=== PATIENT | male | born 1990 | race Hispanic/Latino ===

== ENCOUNTER 2018-05-22 22:56 | Emergency (ER) | payer OTHER, SELFPAY ==
[2018-05-22 23:10] VITALS: BP 131/96; PULSE 80; RESP 16; TEMP 37.1; O2SAT 100; BMI 31.3
--- NOTE | 2018-05-22 23:26 | ED_ITS ---
HPI - Ear Problem General Chief complaint: Ear Stated complaint: possible damaged eardrums...both ears Time Seen by Provider: 05/22/18 23:10 Source: patient Mode of arrival: ambulatory Limitations: no limitations History of Present Illness HPI Narrative: Patient is a 28-year-old male who presents with bilateral hearing loss. He says he tried getting wax out of his ears using a Q-tip he was unable to do so in a he really can't hear. He has bilateral ear pain more on the left than the right. No sore throat no cough no fever no other symptoms. MD Complaint: ear pain Location: bilateral Related Data Home Medications Medication Instructions Recorded Confirmed No Known Home Medications 05/22/18 05/22/18 Allergies Allergy/AdvReac Type Severity Reaction Status Date / Time acetaminophen [ACETAMINOPHEN] Allergy Intermediate Unverified 05/22/18 23:13 Review of Systems Review of Systems GENERAL: Denies chills,fever HEENT the HPI RESPIRATORY: Denies dyspnea, cough, wheezing CARDIOVASCULAR: Denies chest pain, palpitations GASTROINTESTINAL: Denies nausea, vomiting MUSCULOSKELETAL: Denies extremity pain, injury SKIN: No rash, no laceration, no pruritus NEUROLOGIC: Denies weakness, dizziness, headache, numbness 8 point review of systems is negative except for those stated above and HPI PFSH Surgical History History of third molar tooth extraction Family History Grandfather Age: 74 Depression Social History Smoking Status: Never smoker Exam Initial Vital Signs Initial Vital Signs: Vital Signs Temperature 98.8 F 05/22/18 23:10 Pulse Rate 80 05/22/18 23:10 Respiratory Rate 16 05/22/18 23:10 Blood Pressure 131/96 H 05/22/18 23:10 Pulse Oximetry 100 05/22/18 23:10 Const General: cooperative and well developed Nutritional Appearance: well nourished Orientation: alert, awake, oriented x3 and not confused [facility] Ears: unable to visualize TM bilaterally (Bilateral cerumen impaction) Nose: external nose normal Mouth: oral mucosae normal Chest Chest: normal inspection of the chest Resp Auscultation: clear to auscultation bilaterally, no rales, no rhonchi and no wheezes Cardio Rate: regular rate Rhythm: regular rhythm Heart Sounds: S1 normal and S2 normal Skin General: no rashes or lesions noted, No jaundice and No petechiae Neuro General: alert, oriented x3, gait normal and no focal motor deficits Speech: speech normal Procedures Ear Wax Removal Both Ears: Cerumenolytic Used: other (IV Fluid) Results: Re-examined: cerumen removed completely TM Examination: TM(s) intact, normal appearance Ear Canal Exam: atraumatic and other (Slightly irritated) Patient Tolerated Procedure: Well Complications: no problems Technique: ear canal irrigated and ear canal curetted Additional Comments: Nursing flushed out ears. Course Vital Signs - 8 hr 05/22/18 23:10 Temperature 98.8 F Pulse Rate 80 Respiratory Rate 16 Blood Pressure 131/96 H Pulse Oximetry 100 Discharge Plan Departure Patient Disposition: Home Clinical Impression: Bilateral impacted cerumen Discharge Date/Time: 05/22/18 23:55 Interventions: ED Discharge Assessment Last Done: 05/22/18 23:55 Instructions: Cerumen Impaction Activity Restrictions/Additional Instructions: *You have been diagnosed with bilateral cerumen impaction *What to do: *Continue to take medications as directed *Follow up with your primary care provider in 2-3 days *Return to ER if you should have [such as] [or] any new, worsening or concerning symptoms Prescriptions: No Action No Known Home Medications RF: 0 Referrals: Batool Payne DO [Primary Care Provider] -
--- NOTE | 2018-05-22 23:55 | PC.NURSE ---
Irrigated both ears with one liter of warmed saline each using a flush with IV cannula attached to get into ear and soften/flush out ear wax. Some wax required an ear curette to get out of the ear once it was dislodged. Pt hearing tested with a tuning fork and he reports hearing is equal bilaterally after ear wax removal. Provider notified and discharged pt.
== END 2018-05-22 23:55 | disposition home or self-care (01) ==
PROVIDERS: Emergency Provider Emergency Medicine; PCP Family Medicine
DX: H61.23 Impacted cerumen, bilateral (principal)
CPT/HCPCS: 99282

== ENCOUNTER 2019-03-29 02:09 | Emergency (ER) | payer OTHER, SELFPAY ==
[2019-03-29 02:17] VITALS: PULSE 125; RESP 22; TEMP 36.1; O2SAT 100
--- NOTE | 2019-03-29 02:19 | ED.ARRPALP ---
HPI - Arrhythmia/Palpitations General Chief Complaint: Arrhythmia/Palpitations Stated Complaint: heart started racing fingers went numb Time Seen by Provider: 03/29/19 02:19 Source: patient Mode of arrival: Ambulatory Limitations: no limitations History of Present Illness HPI narrative: 29-year-old otherwise healthy male here for evaluation of palpitations and paresthesias in his hands. He states the symptoms occurred prior to arrival he was at work. Denies any chest pain or shortness of breath. Has never had anything like this in the past. Has not tried anything for symptoms prior to arrival. Related Data Home Medications Medication Instructions Recorded Confirmed No Known Home Medications 05/22/18 05/22/18 Allergies Allergy/AdvReac Type Severity Reaction Status Date / Time acetaminophen [ACETAMINOPHEN] Allergy Intermediate Unverified 05/22/18 23:13 Review of Systems Constitutional Constitutional: Denies fatigue, Denies fever(s) and Denies headache(s) Eyes Eyes: Denies blurry vision and Denies change in vision ENT Ears, Nose, Mouth, and Throat: Denies headache(s) Cardiovascular Cardiovascular: Denies chest pain, Denies edema, Reports palpitations, Denies dyspnea and Denies dyspnea on exertion Respiratory Respiratory: Denies dyspnea and Denies dyspnea on exertion Gastrointestinal Gastrointestinal: Denies abdominal pain, Denies nausea and Denies vomiting Genitourinary Genitourinary: Denies dysuria Musculoskeletal Musculoskeletal: Denies myalgias, Denies arthralgias and Reports tingling Integumentary/Breasts Skin/Breast: Denies lesions and Denies rash Neurologic Neurologic: Denies behavioral changes, Denies headache(s), Reports tingling and Reports paresthesias Psychiatric Psychiatric: Denies behavioral changes Endocrine Endocrine: Denies fatigue and Reports palpitations Hematologic/Lymphatic Hematologic/Lymphatic: Denies easy bleeding and Denies easy bruising Patient History Medical History Conjunctivitis (Inactive) GI bleed due to NSAIDs (Inactive) Surgical History History of third molar tooth extraction Family History (Updated 05/07/16 @ 00:00 by Conversion Provider) Grandfather Age: 74 Depression Social History Smoking Status: Never smoker alcohol intake frequency: 0-2 drinks per day Substance Use Type: marijuana and other Exam Initial Vital Signs Initial Vital Signs: Vital Signs Temperature 96.9 F L 03/29/19 02:17 Pulse Rate 125 H 03/29/19 02:17 Respiratory Rate 22 03/29/19 02:17 Pulse Oximetry 100 03/29/19 02:17 Const General: cooperative, comfortable and well developed Orientation: alert, awake and oriented x3 HENMT Head: normal to inspection and normocephalic Resp Effort & Inspection: normal respiratory effort Auscultation: clear to auscultation bilaterally Cardio Rate: tachycardic Rhythm: regular rhythm Pulses: radial pulses present GI Inspection: non-distended Palpation: soft Skin Lesions: no lesions Rashes: no rashes Neuro General: alert, awake and oriented x3 Cognition: normal cognition Speech: speech normal Extrem General: normal to inspection and capillary refill normal Psych Appearance: grossly normal and well kempt Course Orders Ordered: ED Orders 03/29/19 02:20 EKG-12 Lead Stat 03/29/19 02:25 Basic Metabolic Panel Stat Complete Blood Count AUTO DIFF Stat D Dimer Stat Partial Thromboplastin Time Stat Prothrombin Time INR Stat Discontinued Medications Sodium Chloride (Normal Saline 0.9%) 1,000 mls @ 1,000 mls/hr IV BOLUS ONE Stop: 03/29/19 03:18 Last Admin: 03/29/19 03:00 Dose: 1,000 mls/hr Documented by: OC Lorazepam (Ativan) 0.5 mg IV NOW ONE Stop: 03/29/19 02:29 Last Admin: 03/29/19 03:00 Dose: 0.5 mg Documented by: OC Potassium Chloride (Potassium Chloride) 40 meq PO NOW ONE Stop: 03/29/19 03:05 Last Admin: 03/29/19 03:08 Dose: 40 meq Documented by: OC Vital Signs Vital signs: Vital Signs - 8 hr 03/29/19 02:17 03/29/19 02:53 03/29/19 03:31 Temperature 96.9 F L Pulse Rate 125 H 85 82 Respiratory Rate 22 18 16 Blood Pressure [Left Arm] 140/77 136/80 Pulse Oximetry 100 99 99 MDM - Arrhythmia/Palpitations Lab Data Attestation: I reviewed the patient's lab results. Result diagrams: 03/29/19 02:25 03/29/19 02:25 Labs: Lab Results 03/29/19 03/29/19 03/29/19 Range/Units 02:25 02:25 02:25 WBC 9.6 (4.5-11.0) X10^3/uL RBC 5.41 (4.5-5.9) X10^6/uL Hgb 15.7 (13.5-17.5) g/dL Hct 46.1 (41-53) % MCV 85.1 (80-100) fL MCH 29.0 (26-34) PG MCHC 34.1 (30-36) % RDW 13.2 (11.6-14.8) % Plt Count 299 (150-400) X10^3/uL Neut % (Auto) 32.0 L (50-75) % Lymph % (Auto) 53.3 H (25-40) % [place] % (Auto) 10.0 (3-14) % Eos % (Auto) 4.1 H (2-4) % Baso % (Auto) 0.6 (0-2) % Neut # (Auto) 3100 (1578-1001) /uL Lymph # (Auto) 5100 H (0383-5339) /uL [place] # (Auto) 1000 H (0-900) /uL Eos # (Auto) 400 (0-450) /uL Baso # (Auto) 100 (0-100) /uL PT 11.9 (10.1-12.7) SECONDS INR 1.0 (0.9-1.3) APTT 32 (26.4-36.2) SECONDS D-Dimer (<230) ng/mL Sodium 141 (137-145) mmol/L Potassium 2.9 L (3.4-5.1) mmol/L Chloride 101 (98-107) mmol/L Carbon Dioxide 25 (22-32) mmol/L BUN 15 (9-20) mg/dL Creatinine 1.00 (0.66-1.25) mg/dL Estimated GFR > 60.0 (>60) mL/min BUN/Creatinine Ratio 15.0 (6-22) Glucose 111 H (70-100) mg/dL Calcium 9.4 (8.4-10.2) mg/dL 03/29/19 Range/Units 02:25 WBC (4.5-11.0) X10^3/uL RBC (4.5-5.9) X10^6/uL Hgb (13.5-17.5) g/dL Hct (41-53) % MCV (80-100) fL MCH (26-34) PG MCHC (30-36) % RDW (11.6-14.8) % Plt Count (150-400) X10^3/uL Neut % (Auto) (50-75) % Lymph % (Auto) (25-40) % [place] % (Auto) (3-14) % Eos % (Auto) (2-4) % Baso % (Auto) (0-2) % Neut # (Auto) (9319-4821) /uL Lymph # (Auto) (0733-1275) /uL [place] # (Auto) (0-900) /uL Eos # (Auto) (0-450) /uL Baso # (Auto) (0-100) /uL PT (10.1-12.7) SECONDS INR (0.9-1.3) APTT (26.4-36.2) SECONDS D-Dimer 232 H (<230) ng/mL Sodium (137-145) mmol/L Potassium (3.4-5.1) mmol/L Chloride (98-107) mmol/L Carbon Dioxide (22-32) mmol/L BUN (9-20) mg/dL Creatinine (0.66-1.25) mg/dL Estimated GFR (>60) mL/min BUN/Creatinine Ratio (6-22) Glucose (70-100) mg/dL Calcium (8.4-10.2) mg/dL ECG Data Attestation: I personally reviewed and interpreted this ECG as follows: Prior ECG tracings: not available for review Interpretation: Sinus tachycardia Ventricular rate of 1 0 we Normal axis Normal QRS Normal QTC No ST T wave changes MDM Narrative Medical decision making narrative: Patient was tachycardic upon arrival however this was a sinus tachycardia. No respiratory distress. Low suspicion for ACS. Low suspicion for PE. He was given Ativan which essentially resolved all of his symptoms. Patient states he did not feel particularly anxious about anything. He did take cranium earlier in the morning without was several hours ago. Did appear to be diaphoretic up on presentation however upon further questioning he stated that he did put some water on his face and in his here to try to get him to feel better while he was at work. Will hold on further workup for now. Informed patient he should contact his primary doctor for follow-up to discuss all Holter monitor. He was given return precautions. He expressed understanding and agreement with plan. Discharge Plan Departure Patient Disposition: Home Clinical Impression: Supraventricular tachycardia Instructions: Arrhythmias Activity Restrictions/Additional Instructions: Recommend that you contact your primary provider who in our system is Dr. Payne to discuss the indications for a Holter monitor. Return to the emergency department for any new or worsening symptoms Prescriptions: No Action No Known Home Medications RF: 0 Referrals: Batool Payne DO [Primary Care Provider] -
[2019-03-29 02:36] LABS: Add Manual Diff / Slide Review NO; Basophils Absolute Auto 100 /uL (0-100); Basophils Percent Auto 0.6 % (0-2); Eosinophils Absolute Auto 400 /uL (0-450); Eosinophils Percent Auto 4.1 % (2-4); Hematocrit 46.1 % (41-53); Hemoglobin 15.7 g/dL (13.5-17.5); Lymphocytes Absolute Auto 5100 /uL (1100-4500); Lymphocytes Percent Auto 53.3 % (25-40); Mean Corpuscular HGB Conc 34.1 % (30-36); Mean Corpuscular Volume 85.1 fL (80-100); Monocytes Absolute Auto 1000 /uL (0-900); Neutrophils Absolute Auto 3100 /uL (1500-7000); Platelet Count 299 X10^3/uL (150-400); Red Blood Cell Count 5.41 X10^6/uL (4.5-5.9); Red Cell Distribution Width 13.2 % (11.6-14.8); White Blood Cell Count 9.6 X10^3/uL (4.5-11.0)
[2019-03-29 02:43] LABS: Prothrombin Time 11.9 SECONDS (10.1-12.7)
[2019-03-29 02:45] LABS: Blood Urea Nitrogen 15 mg/dL (9-20); Calcium 9.4 mg/dL (8.4-10.2); Carbon Dioxide 25 mmol/L (22-32); Chloride 101 mmol/L (98-107); Estimated Glomerular Filt Rate > 60.0 mL/min (>60); Glucose 111 mg/dL (70-100); HEMOLYSIS < 15 (0-50); Potassium 2.9 mmol/L (3.4-5.1); Sodium 141 mmol/L (137-145)
[2019-03-29 02:46] LABS: PTT Partial Thromboplastin Tim 32 SECONDS (26.4-36.2)
[2019-03-29 02:53] VITALS: BP 140/77; PULSE 85; RESP 18; O2SAT 99
[2019-03-29 02:56] LABS: D Dimer 232 ng/mL (<230)
[2019-03-29] MEDS: SODIUM CHLORIDE 0.9% 1,000 ML 1000 ML IV (03:00)
[2019-03-29] MEDS: LORazepam 2 MG/ML INJ 0.5 MG IV (03:00)
[2019-03-29] MEDS: POTASSIUM CHLORIDE 20 MEQ/15 ML UDC 40 MEQ PO (03:08)
[2019-03-29 03:31] VITALS: BP 136/80; PULSE 82; RESP 16; O2SAT 99
--- NOTE | 2019-03-29 03:32 | PC.NURSE ---
Resting quietly in darkened room, conversing with mother in full sentences. In no distress. States he's feeling better and is just tired. Denies CP denies SOB.
[2019-03-29 04:30] VITALS: BP 125/77; PULSE 81; RESP 16; TEMP 36.9; O2SAT 99
== END 2019-03-29 04:07 | disposition home or self-care (01) ==
PROVIDERS: Emergency Provider Emergency Medicine; PCP Family Medicine
DX: I47.1 Supraventricular tachycardia (principal)
CPT/HCPCS: 36415; 80048; 85025; 85379; 85610; 85730; 93005; 93010; 96361; 96374; 99283; 99284; J2060

== ENCOUNTER → 2019-10-05 15:01 | Outpatient (CLI) | payer OTHER, SELFPAY ==
[2019-10-05 16:25] LABS: Alanine Aminotransferase 20 IU/L (<50); Albumin 4.8 g/dL (3.5-5.0); Albumin Globulin Ratio 1.5 (1.0-2.8); Alkaline Phosphatase 48 U/L (38-126); Aspartate Aminotransferase 24 IU/L (17-59); BUN Creatinine Ratio 8.9 (6-22); Bilirubin Total 0.8 mg/dL (0.2-1.3); Blood Urea Nitrogen 8 mg/dL (9-20); Calcium 10.1 mg/dL (8.4-10.2); Carbon Dioxide 27 mmol/L (22-32); Chloride 104 mmol/L (98-107); Estimated Glomerular Filt Rate > 60.0 mL/min (>60); Globulin 3.1 g/dL (1.7-4.1); Glucose 97 mg/dL (70-100); HEMOLYSIS < 15 (0-50); Magnesium 1.9 mg/dL (1.6-2.3); Sodium 142 mmol/L (137-145); Total Protein 7.9 g/dL (6.3-8.2)
== END ==
PROVIDERS: PCP Family Medicine; Referring Provider Family Medicine; Visit Provider Family Medicine
DX: R00.2 Palpitations (principal)
CPT/HCPCS: 36415; 80053; 83735

== ENCOUNTER 2020-10-22 04:07 | Emergency (ER) | payer OTHER, SELFPAY ==
[2020-10-22 04:15] VITALS: BP 186/98; PULSE 133; RESP 17; TEMP 36.7; O2SAT 100; BMI 32.8
[2020-10-22 04:20] VITALS: PULSE 122; RESP 18; O2SAT 100
--- NOTE | 2020-10-22 04:25 | DI.RAD.S_ITS ---
PROCEDURE: XR CHEST 1V INDICATIONS: chest pain TECHNIQUE: One view of the chest was acquired. COMPARISON: None. FINDINGS: Surgical changes and devices: None. Lungs and pleura: Lungs are clear. No pleural effusions or pneumothorax. Mediastinum: Mediastinal contours appear normal. Heart size is normal. Bones and chest wall: No suspicious bony lesions. Overlying soft tissues appear unremarkable. IMPRESSION: Normal portable chest. Note: No significant discrepancy from the preliminary report. Dictated by: Papito Sauceda M.D. on 10/22/2020 at 8:22 Approved by: Papito Sauceda M.D. on 10/22/2020 at 8:22
[2020-10-22 04:30] VITALS: BP 164/81; PULSE 110; RESP 23; O2SAT 100
[2020-10-22 04:33] LABS: Add Manual Diff / Slide Review NO; Basophils Absolute Auto 100 /uL (0-100); Basophils Percent Auto 0.5 % (0-2); Eosinophils Absolute Auto 100 /uL (0-450); Hematocrit 44.9 % (41-53); Lymphocytes Absolute Auto 4500 /uL (1100-4500); Lymphocytes Percent Auto 40.4 % (25-40); Mean Corpuscular HGB Conc 33.3 % (30-36); Mean Corpuscular Hemoglobin 28.9 PG (26-34); Mean Corpuscular Volume 86.6 fL (80-100); Monocytes Absolute Auto 900 /uL (0-900); Monocytes Percent Auto 7.9 % (3-14); Neutrophils Absolute Auto 5600 /uL (1500-7000); Neutrophils Percent Auto 50.2 % (50-75); Platelet Count 311 X10^3/uL (150-400); Red Blood Cell Count 5.18 X10^6/uL (4.5-5.9); Red Cell Distribution Width 12.7 % (11.6-14.8); White Blood Cell Count 11.1 X10^3/uL (4.5-11.0)
[2020-10-22] MEDS: SODIUM CHLORIDE 0.9% 1,000 ML 1000 ML IV (04:34)
[2020-10-22 04:38] LABS: INR 1.2 (0.9-1.3); Prothrombin Time 13.4 SECONDS (10.1-12.7)
[2020-10-22 04:40] LABS: PTT Partial Thromboplastin Tim 31 SECONDS (26.4-36.2)
[2020-10-22 04:42] LABS: Alanine Aminotransferase 26 IU/L (<50); Albumin 4.6 g/dL (3.5-5.0); Albumin Globulin Ratio 1.4 (1.0-2.8); Alkaline Phosphatase 71 U/L (38-126); Aspartate Aminotransferase 30 IU/L (17-59); BUN Creatinine Ratio 14.9 (6-22); Bilirubin Total 0.4 mg/dL (0.2-1.3); Blood Urea Nitrogen 13 mg/dL (9-20); Calcium 9.4 mg/dL (8.4-10.2); Carbon Dioxide 23 mmol/L (22-32); Chloride 102 mmol/L (98-107); Creatine Kinase 178 U/L (55-170); Estimated Glomerular Filt Rate > 60.0 mL/min (>60); Globulin 3.2 g/dL (1.7-4.1); Glucose 135 mg/dL (70-100); HEMOLYSIS < 15 (0-50); Lipase 57 U/L (23-300); Sodium 137 mmol/L (137-145); Total Protein 7.8 g/dL (6.3-8.2)
--- NOTE | 2020-10-22 04:45 | ED.ARRPALP ---
HPI - Arrhythmia/Palpitations General Chief Complaint: Arrhythmia/Palpitations Stated Complaint: Elevated heart rate, constipated Time Seen by Provider: 10/22/20 04:40 Source: family Mode of arrival: Ambulatory Limitations: no limitations History of Present Illness HPI narrative: Patient is a 30-year-old male with history ofKratom use. He says a few years ago was quite pad however he has decreased his use significantly and uses every couple of days now. He feels like he around something for his in his body. He his is constipated at times although he does have bowel movements. He has no real specific abdominal pain. He occasionally has some palpitations he is noted to be tachycardic is in the emergency department. She denies any dizziness or lightheadedness. He states that his most recent use just few days ago. He denies any fever or chills. MD complaint: rapid heart beat Related Data Home Medications Medication Instructions Recorded Confirmed multivitamin,[id number] 1 tab PO DAILY 07/14/19 07/14/19 omega-3 fatty acids 1,000 mg 1,000 mg PO DAILY 07/14/19 07/14/19 capsule Allergies Allergy/AdvReac Type Severity Reaction Status Date / Time acetaminophen [ACETAMINOPHEN] Allergy Intermediate Verified 07/14/19 14:23 Review of Systems Review of Systems ROS Unobtainable: All systems reviewed & are unremarkable except as noted in HPI and below Constitutional Constitutional: Denies chills, Denies fever(s), Denies lethargy and Denies weakness ENT Ears, Nose, Mouth, and Throat: Denies change in voice, Denies neck pain and Denies sore throat Cardiovascular Cardiovascular: Reports as per HPI, Denies syncope, Reports rapid heart rate and Denies dyspnea Respiratory Respiratory: Denies dyspnea Gastrointestinal Gastrointestinal: Reports as per HPI, Reports abdominal pain, Reports constipation, Denies diarrhea and Denies vomiting Musculoskeletal Musculoskeletal: Denies back pain, Denies myalgias and Denies neck pain Integumentary/Breasts Skin/Breast: Denies pruritus, Denies erythema, Denies rash and Denies wounds Neurologic Neurologic: Denies syncope and Denies weakness Patient History Medical History (Updated 10/22/20 @ 05:02 by Maia Hernández DO) Conjunctivitis GI bleed due to NSAIDs Surgical History History of third molar tooth extraction Family History Grandfather Age: 76 Depression Social History Smoking Status: Current every day smoker Smoking Status: Current every day smoker alcohol intake frequency: 0-2 drinks per day Substance Use Type: marijuana and other Exam Initial Vital Signs Initial Vital Signs: Vital Signs Temperature 98.1 F 10/22/20 04:15 Pulse Rate 133 H 10/22/20 04:15 Respiratory Rate 17 10/22/20 04:15 Blood Pressure 186/98 H 10/22/20 04:15 Pulse Oximetry 100 10/22/20 04:15 GENERAL: Alert young anxious 30-year-old male and in [no acute] distress. HEENT: Head atraumatic,EOMI, pupils reactive, face symmetric, [moist] mucous membranes CARDIOVASCULAR: Tachycardic regular no murmurs RESPIRATORY: Breath sounds equal bilaterally, no wheezes rales or rhonchi. ABDOMEN: Soft, nontender. Normoactive bowel sounds all 4 quadrants. No guarding or rebound. No localization of pain : No CVA tenderness EXTREMITIES: Normal range of motion, no clubbing or edema. Neurovascularly intact NEUROLOGICAL: Alert and oriented x4.Normal gait and speech. SKIN: Warm, dry, no laceration, no petechiae, no rashes or lesions. Const General: cooperative and well developed Nutritional Appearance: well nourished Course Orders Ordered: ED Orders 10/22/20 04:24 Complete Blood Count AUTO DIFF Stat Comprehensive Metabolic Panel Stat Lipase Stat Partial Thromboplastin Time Stat Prothrombin Time INR Stat Troponin & CK Cardiac Panel Stat 10/22/20 04:25 XR chest 1V Stat EKG-12 Lead Stat Discontinued Medications Sodium Chloride (Normal Saline 0.9%) 1,000 mls @ 1,000 mls/hr IV BOLUS ONE Stop: 10/22/20 05:27 Last Admin: 10/22/20 04:34 Dose: 1,000 mls/hr Documented by: JO Ketorolac Tromethamine (Ketorolac 30 Mg/Ml Vial) 30 mg IV NOW ONE Stop: 10/22/20 05:07 Last Admin: 10/22/20 05:09 Dose: 30 mg Documented by: Potassium Chloride (Potassium Chloride 20 Meq Tab) 40 meq PO NOW ONE Stop: 10/22/20 04:54 Last Admin: 10/22/20 04:56 Dose: 40 meq Documented by: Vital Signs Vital signs: Vital Signs - 8 hr 10/22/20 04:15 10/22/20 04:20 10/22/20 04:30 Temperature 98.1 F Pulse Rate 133 H 122 H 110 H Respiratory Rate 17 18 23 Blood Pressure 186/98 H 164/81 H Pulse Oximetry 100 100 100 10/22/20 05:00 Temperature Pulse Rate 101 H Respiratory Rate 14 Blood Pressure 147/76 H Pulse Oximetry 99 MDM - Arrhythmia/Palpitations Lab Data Attestation: I reviewed the patient's lab results. Result diagrams: 10/22/20 04:24 10/22/20 04:24 Labs: Lab Results 10/22/20 10/22/20 10/22/20 Range/Units 04:24 04:24 04:24 WBC 11.1 H (4.5-11.0) X10^3/uL RBC 5.18 (4.5-5.9) X10^6/uL Hgb 15.0 (13.5-17.5) g/dL Hct 44.9 (41-53) % MCV 86.6 (80-100) fL MCH 28.9 (26-34) PG MCHC 33.3 (30-36) % RDW 12.7 (11.6-14.8) % Plt Count 311 (150-400) X10^3/uL Neut % (Auto) 50.2 (50-75) % Lymph % (Auto) 40.4 H (25-40) % [place] % (Auto) 7.9 (3-14) % Eos % (Auto) 1.0 L (2-4) % Baso % (Auto) 0.5 (0-2) % Neut # (Auto) 5600 (1932-3437) /uL Lymph # (Auto) 4500 (9799-8709) /uL [place] # (Auto) 900 (0-900) /uL Eos # (Auto) 100 (0-450) /uL Baso # (Auto) 100 (0-100) /uL PT 13.4 H (10.1-12.7) SECONDS INR 1.2 (0.9-1.3) APTT 31 (26.4-36.2) SECONDS Sodium 137 (137-145) mmol/L Potassium 3.0 L (3.4-5.1) mmol/L Chloride 102 (98-107) mmol/L Carbon Dioxide 23 (22-32) mmol/L BUN 13 (9-20) mg/dL Creatinine 0.87 (0.66-1.25) mg/dL Estimated GFR > 60.0 (>60) mL/min BUN/Creatinine Ratio 14.9 (6-22) Glucose 135 H (70-100) mg/dL Calcium 9.4 (8.4-10.2) mg/dL Total Bilirubin 0.4 (0.2-1.3) mg/dL AST 30 (17-59) IU/L ALT 26 (<50) IU/L Alkaline Phosphatase 71 (38-126) U/L Total Creatine Kinase 178 H (55-170) U/L CK-MB (CK-2) 0.73 (<2.37) ng/mL CK-MB (CK-2) Rel Index 0.4 L (1.5-5.0) % Troponin I < 0.012 (0.01-0.034) ng/mL Total Protein 7.8 (6.3-8.2) g/dL Albumin 4.6 (3.5-5.0) g/dL Globulin 3.2 (1.7-4.1) g/dL Albumin/Globulin Ratio 1.4 (1.0-2.8) Lipase 57 (23-300) U/L Imaging Data Chest x-ray: Radiologist's Impresson: Preliminary report no active cardiopulmonary disease ECG Data Attestation: I personally reviewed and interpreted this ECG as follows: Interpretation: Normal sinus rhythm rate [address] changes or T-wave inversions MDM Narrative Medical decision making narrative: Patient's symptoms are likely secondary toKratom use. Abdomen is soft and nontender at this time no need for imaging. He is having bowel movements no persistent vomiting unlikely to be any sort of obstruction. He takes medication for constipation. Heart rate improved significantly with a small amount of IV fluids. Seen by his primary care provider 1 year ago for very similar symptoms. Patient had sharp shooting pains immediately after taking the potassium. Stating that he is constipated and needs something for pain. I believe that his symptoms are still related to his drug use. Is abdomen is soft he has no localization of pain for at this time no indication for any imaging. Discharge Plan Departure Patient Disposition: Home Clinical Impression: Palpitations, Hypokalemia Drug reaction Qualifiers: Encounter type: initial encounter Qualified Code(s): T50.905A - Adverse effect of unspecified drugs, medicaments and biological substances, initial encounter Instructions: Substance Use Disorder, DI for Palpitations Activity Restrictions/Additional Instructions: *You have been diagnosed with palpitations *What to do: Your symptoms are likely consistent withKratom use. It can cause constipation, palpitations, decreased appetite. It is recommended that he stop using completely *Continue to take medications as directed *Follow up with your primary care provider in 2-3 days *Return to ER if you should have increasing chest pain palpitations abdominal pain persistent vomiting fever or any new, worsening or concerning symptoms Prescriptions: No Action Complete Multivitamin Tablet 1 tab PO DAILY RF: 0 omega-3 fatty acids [Fish Oil Concentrate] 1,000 mg capsule 1,000 mg PO DAILY RF: 0 Referrals: Batool Payne DO [Primary Care Provider] -
[2020-10-22 04:54] LABS: Troponin I < 0.012 ng/mL (0.01-0.034)
[2020-10-22] MEDS: POTASSIUM CHLORIDE 20 MEQ TAB 40 MEQ PO (04:56)
[2020-10-22 04:57] LABS: CKMB % Relative Index 0.4 % (1.5-5.0); Creatine Kinase MB 0.73 ng/mL (<2.37)
[2020-10-22 05:00] VITALS: BP 147/76; PULSE 101; RESP 14; O2SAT 99
[2020-10-22] MEDS: KETOROLAC 30 MG/ML VIAL IV (05:09)
== END 2020-10-22 05:14 | disposition home or self-care (01) ==
PROVIDERS: Emergency Provider Emergency Medicine; PCP Family Medicine
DX: R00.2 Palpitations (principal); E87.6 Hypokalemia; T50.905A Adverse effect of unspecified drugs, medicaments and biological substances, initial encounter; K59.00 Constipation, unspecified
CPT/HCPCS: 36415; 71045; 80053; 82550; 82553; 83690; 84484; 85025; 85610; 85730; 93005; 96361; 96374; 99284; J1885

== ENCOUNTER → 2020-11-09 15:06 | Outpatient (CLI) | payer OTHER, SELFPAY ==
[2020-11-09 15:47] LABS: Add Manual Diff / Slide Review NO; Basophils Absolute Auto 0 /uL (0-100); Basophils Percent Auto 0.6 % (0-2); Eosinophils Absolute Auto 100 /uL (0-450); Eosinophils Percent Auto 1.1 % (2-4); Hematocrit 46.6 % (41-53); Hemoglobin 15.4 g/dL (13.5-17.5); Lymphocytes Absolute Auto 2200 /uL (1100-4500); Mean Corpuscular HGB Conc 33.1 % (30-36); Mean Corpuscular Hemoglobin 28.7 PG (26-34); Mean Corpuscular Volume 86.6 fL (80-100); Monocytes Absolute Auto 500 /uL (0-900); Monocytes Percent Auto 7.4 % (3-14); Neutrophils Absolute Auto 3900 /uL (1500-7000); Neutrophils Percent Auto 57.9 % (50-75); Platelet Count 251 X10^3/uL (150-400); Red Blood Cell Count 5.37 X10^6/uL (4.5-5.9); Red Cell Distribution Width 12.9 % (11.6-14.8); White Blood Cell Count 6.8 X10^3/uL (4.5-11.0)
[2020-11-09 15:54] LABS: Alanine Aminotransferase 21 IU/L (<50); Albumin 4.7 g/dL (3.5-5.0); Albumin Globulin Ratio 1.6 (1.0-2.8); Alkaline Phosphatase 55 U/L (38-126); Aspartate Aminotransferase 28 IU/L (17-59); BUN Creatinine Ratio 11.6 (6-22); Bilirubin Total 0.6 mg/dL (0.2-1.3); Blood Urea Nitrogen 10 mg/dL (9-20); Calcium 9.8 mg/dL (8.4-10.2); Carbon Dioxide 27 mmol/L (22-32); Chloride 105 mmol/L (98-107); Estimated Glomerular Filt Rate > 60.0 mL/min (>60); Glucose 95 mg/dL (70-100); HEMOLYSIS < 15 (0-50); Potassium 3.8 mmol/L (3.4-5.1); Sodium 140 mmol/L (137-145); Total Protein 7.7 g/dL (6.3-8.2)
== END ==
PROVIDERS: Physician Assistant; PCP Family Medicine; Referring Provider Specialist; Visit Provider Specialist
DX: R10.11 Right upper quadrant pain (principal); Z86.39 Personal history of other endocrine, nutritional and metabolic disease
CPT/HCPCS: 36415; 80053; 85025

== ENCOUNTER 2020-11-19 05:43 | Emergency (ER) | payer OTHER, SELFPAY ==
[2020-11-19] VITALS (10 sets, daily range): BP systolic 118–158; BP diastolic 64–105; PULSE 18–138; RESP 14–20; TEMP 36.5–37.4; O2SAT 95–99; BMI 32.8
--- NOTE | 2020-11-19 05:44 | ED.ABDPAIN ---
HPI - Abdominal Pain <Kevin Tai DO - Last Filed: 11/25/20 03:20> General Chief Complaint: Abdominal Pain Stated Complaint: Possible gallbladder stones, severe pain Time Seen by Provider: 11/19/20 05:44 Source: patient Mode of arrival: Ambulatory Limitations: no limitations History of Present Illness HPI narrative: 30-year-old male nonsmoker with benign medical history presents with a chief complaint of severe right upper quadrant pain that started after eating this evening. He got off of work at about 2:30 a.m. and 8 soon thereafter. He developed terrible pain that radiates to his back associated with nausea. He denies any fever chills nor any jaundice. He has had episodes of this in the past and is in fact scheduled for an ultrasound to evaluate his gallbladder next week. He takes no blood thinners and denies prior bowel surgeries MD complaint: abdominal pain Onset (ago): hour(s) Pain Consistency: constant Location: RUQ Severity: moderate Quality: cramping and stabbing Radiation: back Relieving factors: nothing Exacerbating factors: eating Associated symptoms: nausea Related Data Home Medications Medication Instructions Recorded Confirmed multivitamin,[id number] 1 tab PO DAILY 07/14/19 11/09/20 (Complete Multivitamin) omega-3 fatty acids 1,000 mg 1,000 mg PO DAILY 07/14/19 11/09/20 capsule (Fish Oil Concentrate) Previous Rx's Medication Instructions Recorded dicyclomine 10 mg capsule 10 mg PO TID PRN #21 cap 11/20/20 trazodone 50 mg tablet 50 mg PO BEDTIME PRN #30 tab 11/23/20 dicyclomine 10 mg capsule 10 mg PO TID PRN #20 cap 11/24/20 Allergies Allergy/AdvReac Type Severity Reaction Status Date / Time acetaminophen [ACETAMINOPHEN] AdvReac Intermediate Nausea Verified 11/24/20 10:40 Review of Systems <Kevin Tai DO - Last Filed: 11/25/20 03:20> Constitutional Constitutional: Denies chills, Denies fatigue, Denies fever(s), Denies frequent falls, Denies lethargy and Denies weakness Eyes Eyes: Denies change in vision, Denies eye discharge, Denies irritation and Denies loss of vision ENT Ears, Nose, Mouth, and Throat: Denies change in voice, Denies dizziness, Denies neck pain, Denies sore throat and Denies throat swelling Cardiovascular Cardiovascular: Denies chest pain, Denies irregular heart rhythm, Denies lightheadedness, Denies palpitations, Denies dyspnea, Denies dyspnea on exertion and Denies orthopnea Respiratory Respiratory: Denies cough, Denies dyspnea, Denies dyspnea on exertion and Denies wheezing Gastrointestinal Gastrointestinal: Reports abdominal pain, Denies change in bowel habits, Denies diarrhea, Reports nausea and Denies vomiting Musculoskeletal Musculoskeletal: Denies neck pain and Denies numbness Integumentary/Breasts Skin/Breast: Denies pruritus, Denies erythema, Denies rash and Denies wounds Neurologic Neurologic: Denies behavioral changes, Denies confusion, Denies dizziness, Denies frequent falls, Denies loss of vision, Denies numbness and Denies weakness Psychiatric Psychiatric: Denies anxiety, Denies behavioral changes, Denies confusion, Denies depression, Denies homicidal ideation and Denies suicidal ideation Endocrine Endocrine: Denies fatigue, Denies flushing and Denies palpitations Hematologic/Lymphatic Hematologic/Lymphatic: Denies easy bruising Allergic/Immunologic Allergic/Immunologic: Denies urticaria, Denies throat swelling and Denies wheezing Patient History <Kevin Tai DO - Last Filed: 11/25/20 03:20> Medical History (Updated 11/24/20 @ 14:21 by Cherie Bernstein DO) Conjunctivitis GI bleed due to NSAIDs Surgical History History of third molar tooth extraction Family History Grandfather Age: 76 Depression Social History Smoking Status: Former smoker Smoking Status: Current every day smoker alcohol intake frequency: 0-2 drinks per day Substance Use Type: marijuana and other Exam <Kevin Tai DO - Last Filed: 11/25/20 03:20> Narrative Exam Narrative: [age] year old patient appears stated age. Well-developed patient, in mild distress. anxious HEAD: Atraumatic. Normocephalic. EYES: Pupils equal round and reactive. Extraocular motions intact. No scleral icterus. No injection or drainage. ENT: Nose without bleeding, purulent drainage. Throat without erythema, tonsillar hypertrophy or exudate. Airway patent. NECK: Trachea midline. Non tender CARDIOVASCULAR: Regular rate and rhythm without murmurs, gallops, or rubs. RESPIRATORY: Clear to auscultation. Breath sounds equal bilaterally. No wheezes, rales, or rhonchi. GASTROINTESTINAL: Abdomen soft, significant tenderness in right upper quadrant, nondistended. EXTREMITIES: No edema or joint tenderness. BACK: Nontender without deformity or crepitance. No flank tenderness. NEURO: AOx3. SKIN: No rash or erythema of visible areas Initial Vital Signs Initial Vital Signs: Vital Signs Temperature 99.3 F 11/19/20 05:58 Pulse Rate 138 H 11/19/20 05:58 Respiratory Rate 20 11/19/20 05:58 Blood Pressure 158/105 H 11/19/20 05:58 Pulse Oximetry 99 11/19/20 05:58 <Cherie Bernstein DO - Last Filed: 11/19/20 19:24> Initial Vital Signs Initial Vital Signs: Vital Signs Temperature 99.3 F 11/19/20 05:58 Pulse Rate 138 H 11/19/20 05:58 Respiratory Rate 20 11/19/20 05:58 Blood Pressure 158/105 H 11/19/20 05:58 Pulse Oximetry 99 11/19/20 05:58 Course <Kevin Tai DO - Last Filed: 11/25/20 03:20> Orders Ordered: Discontinued Medications Hydromorphone HCl (Hydromorphone 0.5 Mg Inj) 0.5 mg IV NOW ONE Stop: 11/19/20 06:36 Last Admin: 11/19/20 06:40 Dose: 0.5 mg Documented by: [email or web address] Hydromorphone HCl (Hydromorphone 0.5 Mg Inj) 0.5 mg IV NOW ONE Stop: 11/19/20 08:59 Last Admin: 11/19/20 09:07 Dose: 0.5 mg Documented by: ANTHONY Sodium Chloride (Normal Saline 0.9%) 1,000 mls @ 1,000 mls/hr IV BOLUS ONE Stop: 11/19/20 06:48 Last Infusion: 11/19/20 07:05 Dose: 0 mls/hr Documented by: [email or web address] Admin: 11/19/20 06:00 Dose: 1,000 mls/hr Documented by: RYAN Sodium Chloride (Normal Saline 0.9%) 1,000 mls @ 1,000 mls/hr IV BOLUS ONE Stop: 11/19/20 10:21 Last Infusion: 11/19/20 10:42 Dose: 0 mls/hr Documented by: Admin: 11/19/20 09:29 Dose: 1,000 mls/hr Documented by: ANTHONY Ondansetron HCl (Ondansetron 4 Mg/2 Ml Inj) 4 mg IV NOW ONE Stop: 11/19/20 06:06 Last Admin: 11/19/20 06:08 Dose: 4 mg Documented by: RYAN Pantoprazole Sodium (Pantoprazole 40 Mg Vial) 40 mg IV NOW ONE Stop: 11/19/20 05:50 Last Admin: 11/19/20 06:00 Dose: 40 mg Documented by: RYAN Potassium Chloride (Potassium Chloride 20 Meq Tab) 40 meq PO NOW ONE Stop: 11/19/20 06:31 Last Admin: 11/19/20 09:15 Dose: 40 meq Documented by: ANTHONY Vital Signs Vital signs: Vital Signs - 8 hr 11/19/20 05:58 11/19/20 06:48 11/19/20 06:50 Temperature 99.3 F Pulse Rate 138 H 105 H 98 H Respiratory Rate 20 17 16 Blood Pressure 158/105 H 141/77 H Pulse Oximetry 99 98 98 11/19/20 07:01 11/19/20 07:40 11/19/20 09:10 Temperature 98.9 F Pulse Rate 92 H 105 H 98 H Respiratory Rate 14 18 Blood Pressure 141/77 H Pulse Oximetry 97 98 95 11/19/20 09:11 11/19/20 09:12 11/19/20 11:08 Temperature 97.8 F Pulse Rate 98 H 18 L 87 Respiratory Rate 18 Blood Pressure 118/64 118/64 130/79 Pulse Oximetry 98 99 99 11/19/20 11:10 Temperature 97.7 F Pulse Rate Respiratory Rate Blood Pressure Pulse Oximetry <Cherie Bernstein DO - Last Filed: 11/19/20 19:24> Orders Ordered: Discontinued Medications Hydromorphone HCl (Hydromorphone 0.5 Mg Inj) 0.5 mg IV NOW ONE Stop: 11/19/20 06:36 Last Admin: 11/19/20 06:40 Dose: 0.5 mg Documented by: CTRSMOOTH Hydromorphone HCl (Hydromorphone 0.5 Mg Inj) 0.5 mg IV NOW ONE Stop: 11/19/20 08:59 Last Admin: 11/19/20 09:07 Dose: 0.5 mg Documented by: ANTHONY Sodium Chloride (Normal Saline 0.9%) 1,000 mls @ 1,000 mls/hr IV BOLUS ONE Stop: 11/19/20 06:48 Last Infusion: 11/19/20 07:05 Dose: 0 mls/hr Documented by: Admin: 11/19/20 06:00 Dose: 1,000 mls/hr Documented by: RYAN Sodium Chloride (Normal Saline 0.9%) 1,000 mls @ 1,000 mls/hr IV BOLUS ONE Stop: 11/19/20 10:21 Last Infusion: 11/19/20 10:42 Dose: 0 mls/hr Documented by: Admin: 11/19/20 09:29 Dose: 1,000 mls/hr Documented by: ANTHONY Ondansetron HCl (Ondansetron 4 Mg/2 Ml Inj) 4 mg IV NOW ONE Stop: 11/19/20 06:06 Last Admin: 11/19/20 06:08 Dose: 4 mg Documented by: RYAN Pantoprazole Sodium (Pantoprazole 40 Mg Vial) 40 mg IV NOW ONE Stop: 11/19/20 05:50 Last Admin: 11/19/20 06:00 Dose: 40 mg Documented by: KGKELLY Potassium Chloride (Potassium Chloride 20 Meq Tab) 40 meq PO NOW ONE Stop: 11/19/20 06:31 Last Admin: 11/19/20 09:15 Dose: 40 meq Documented by: ANTHONY Consultations Consultation #1: Dr. Sanchez, does not appear infectious and would defer to gen surg or thoracic for biopsy. Is more in chest cavity behind aorta. Consultation #2: Dr. Sargent, Recommends outpatient follow-up with thoracic surgery/ Med Onc for further evaluation. Location seems less likely cause of patient's symptoms. Patient is not having any new neurologic changes. Patient might also benefit from HIDA scan. Vital Signs Vital signs: Vital Signs - 8 hr 11/19/20 05:58 11/19/20 06:48 11/19/20 06:50 Temperature 99.3 F Pulse Rate 138 H 105 H 98 H Respiratory Rate 20 17 16 Blood Pressure 158/105 H 141/77 H Pulse Oximetry 99 98 98 11/19/20 07:01 11/19/20 07:40 11/19/20 09:10 Temperature 98.9 F Pulse Rate 92 H 105 H 98 H Respiratory Rate 14 18 Blood Pressure 141/77 H Pulse Oximetry 97 98 95 11/19/20 09:11 11/19/20 09:12 11/19/20 11:08 Temperature 97.8 F Pulse Rate 98 H 18 L 87 Respiratory Rate 18 Blood Pressure 118/64 118/64 130/79 Pulse Oximetry 98 99 99 11/19/20 11:10 Temperature 97.7 F Pulse Rate Respiratory Rate Blood Pressure Pulse Oximetry MDM - Abdominal Pain <Kevin Tai DO - Last Filed: 11/25/20 03:20> Lab Data Result diagrams: 11/19/20 05:55 11/19/20 05:55 Labs: Lab Results 11/19/20 11/19/20 11/19/20 Range/Units 05:55 05:55 05:55 WBC 11.0 (4.5-11.0) X10^3/uL RBC 5.23 (4.5-5.9) X10^6/uL Hgb 15.0 (13.5-17.5) g/dL Hct 44.7 (41-53) % MCV 85.5 (80-100) fL MCH 28.6 (26-34) PG MCHC 33.5 (30-36) % RDW 12.8 (11.6-14.8) % Plt Count 283 (150-400) X10^3/uL Neut % (Auto) 46.5 L (50-75) % Lymph % (Auto) 39.7 (25-40) % [place] % (Auto) 11.7 (3-14) % Eos % (Auto) 1.6 L (2-4) % Baso % (Auto) 0.5 (0-2) % Neut # (Auto) 5100 (4970-2165) /uL Lymph # (Auto) 4400 (9383-4304) /uL [place] # (Auto) 1300 H (0-900) /uL Eos # (Auto) 200 (0-450) /uL Baso # (Auto) 100 (0-100) /uL Sodium 141 (137-145) mmol/L Potassium 3.2 L (3.4-5.1) mmol/L Chloride 103 (98-107) mmol/L Carbon Dioxide 28 (22-32) mmol/L BUN 13 (9-20) mg/dL Creatinine 0.89 (0.66-1.25) mg/dL Estimated GFR > 60.0 (>60) mL/min BUN/Creatinine Ratio 14.6 (6-22) Glucose 107 H (70-100) mg/dL Calcium 9.8 (8.4-10.2) mg/dL Total Bilirubin 0.5 (0.2-1.3) mg/dL AST 28 (17-59) IU/L ALT 21 (<50) IU/L Alkaline Phosphatase 56 (38-126) U/L Total Protein 7.9 (6.3-8.2) g/dL Albumin 4.7 (3.5-5.0) g/dL Globulin 3.2 (1.7-4.1) g/dL Albumin/Globulin Ratio 1.5 (1.0-2.8) Lipase 33 (23-300) U/L SARS-CoV-2 (PCR) (Negative) 11/19/20 Range/Units 06:12 WBC (4.5-11.0) X10^3/uL RBC (4.5-5.9) X10^6/uL Hgb (13.5-17.5) g/dL Hct (41-53) % MCV (80-100) fL MCH (26-34) PG MCHC (30-36) % RDW (11.6-14.8) % Plt Count (150-400) X10^3/uL Neut % (Auto) (50-75) % Lymph % (Auto) (25-40) % Craven % (Auto) (3-14) % Eos % (Auto) (2-4) % Baso % (Auto) (0-2) % Neut # (Auto) (6548-0211) /uL Lymph # (Auto) (7980-6296) /uL Craven # (Auto) (0-900) /uL Eos # (Auto) (0-450) /uL Baso # (Auto) (0-100) /uL Sodium (137-145) mmol/L Potassium (3.4-5.1) mmol/L Chloride (98-107) mmol/L Carbon Dioxide (22-32) mmol/L BUN (9-20) mg/dL Creatinine (0.66-1.25) mg/dL Estimated GFR (>60) mL/min BUN/Creatinine Ratio (6-22) Glucose (70-100) mg/dL Calcium (8.4-10.2) mg/dL Total Bilirubin (0.2-1.3) mg/dL AST (17-59) IU/L ALT (<50) IU/L Alkaline Phosphatase (38-126) U/L Total Protein (6.3-8.2) g/dL Albumin (3.5-5.0) g/dL Globulin (1.7-4.1) g/dL Albumin/Globulin Ratio (1.0-2.8) Lipase (23-300) U/L SARS-CoV-2 (PCR) Negative (Negative) Point of care testing: Urine Dip Bedside Urine Glucose Negative Bedside Urine Bilirubin - Negative Bedside Urine Ketone - Negative Urine Specific [place] 1.010 Bedside Urine Occult Blood - Negative Bedside Urine pH 7.5 Bedside Urine Protein - Negative Bedside Urine Urobilinogen - Negative Bedside Urine Nitrite - Negative Bedside Urine Leukocytes - Negative Esterase <Cherie Bernstein, DO - Last Filed: 11/19/20 19:24> Lab Data Attestation: I reviewed the patient's lab results. Labs: Lab Results 11/19/20 11/19/20 11/19/20 Range/Units 05:55 05:55 05:55 WBC 11.0 (4.5-11.0) X10^3/uL RBC 5.23 (4.5-5.9) X10^6/uL Hgb 15.0 (13.5-17.5) g/dL Hct 44.7 (41-53) % MCV 85.5 (80-100) fL MCH 28.6 (26-34) PG MCHC 33.5 (30-36) % RDW 12.8 (11.6-14.8) % Plt Count 283 (150-400) X10^3/uL Neut % (Auto) 46.5 L (50-75) % Lymph % (Auto) 39.7 (25-40) % [place]ven % (Auto) 11.7 (3-14) % Eos % (Auto) 1.6 L (2-4) % Baso % (Auto) 0.5 (0-2) % Neut # (Auto) 5100 (1667-3526) /uL Lymph # (Auto) 4400 (6162-7994) /uL [place]ven # (Auto) 1300 H (0-900) /uL Eos # (Auto) 200 (0-450) /uL Baso # (Auto) 100 (0-100) /uL Sodium 141 (137-145) mmol/L Potassium 3.2 L (3.4-5.1) mmol/L Chloride 103 (98-107) mmol/L Carbon Dioxide 28 (22-32) mmol/L BUN 13 (9-20) mg/dL Creatinine 0.89 (0.66-1.25) mg/dL Estimated GFR > 60.0 (>60) mL/min BUN/Creatinine Ratio 14.6 (6-22) Glucose 107 H (70-100) mg/dL Calcium 9.8 (8.4-10.2) mg/dL Total Bilirubin 0.5 (0.2-1.3) mg/dL AST 28 (17-59) IU/L ALT 21 (<50) IU/L Alkaline Phosphatase 56 (38-126) U/L Total Protein 7.9 (6.3-8.2) g/dL Albumin 4.7 (3.5-5.0) g/dL Globulin 3.2 (1.7-4.1) g/dL Albumin/Globulin Ratio 1.5 (1.0-2.8) Lipase 33 (23-300) U/L SARS-CoV-2 (PCR) (Negative) 11/19/20 Range/Units 06:12 WBC (4.5-11.0) X10^3/uL RBC (4.5-5.9) X10^6/uL Hgb (13.5-17.5) g/dL Hct (41-53) % MCV (80-100) fL MCH (26-34) PG MCHC (30-36) % RDW (11.6-14.8) % Plt Count (150-400) X10^3/uL Neut % (Auto) (50-75) % Lymph % (Auto) (25-40) % [place]ven % (Auto) (3-14) % Eos % (Auto) (2-4) % Baso % (Auto) (0-2) % Neut # (Auto) (0568-5372) /uL Lymph # (Auto) (1490-2471) /uL Craven # (Auto) (0-900) /uL Eos # (Auto) (0-450) /uL Baso # (Auto) (0-100) /uL Sodium (137-145) mmol/L Potassium (3.4-5.1) mmol/L Chloride (98-107) mmol/L Carbon Dioxide (22-32) mmol/L BUN (9-20) mg/dL Creatinine (0.66-1.25) mg/dL Estimated GFR (>60) mL/min BUN/Creatinine Ratio (6-22) Glucose (70-100) mg/dL Calcium (8.4-10.2) mg/dL Total Bilirubin (0.2-1.3) mg/dL AST (17-59) IU/L ALT (<50) IU/L Alkaline Phosphatase (38-126) U/L Total Protein (6.3-8.2) g/dL Albumin (3.5-5.0) g/dL Globulin (1.7-4.1) g/dL Albumin/Globulin Ratio (1.0-2.8) Lipase (23-300) U/L SARS-CoV-2 (PCR) Negative (Negative) Point of care testing: Urine Dip Bedside Urine Glucose Negative Bedside Urine Bilirubin - Negative Bedside Urine Ketone - Negative Urine Specific [place] 1.010 Bedside Urine Occult Blood - Negative Bedside Urine pH 7.5 Bedside Urine Protein - Negative Bedside Urine Urobilinogen - Negative Bedside Urine Nitrite - Negative Bedside Urine Leukocytes - Negative Esterase Imaging Data CT scan - abdomen/pelvis: Radiologist's Impression: Night rad read is no acute process. US - abdomen: Radiologist's Impression: nap. 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 Otherwise unremarkable CT of the chest with contrast. MDM Narrative Medical decision making narrative: This is a 30-year-old male who comes with concern of abdominal pain. Patient was concerned about gallbladder stones. He has had symptoms intermittently he notes it especially when stool seems to move through his abdomen and cause pain in the right upper quadrant epigastric region. Patient was signed out to myself by Dr. Tai He was independently seen and evaluated by myself.. Patient is slightly tachycardic, afebrile with right upper quadrant tenderness. Patient does have normal labs, ultrasound with no dilated ducts. Patient had CT abdomen pelvis also included which also shows no acute process on the night read But was noted to have S possible area of change and day shift Radiology asked for CT chest with contrast for further evaluation. this did show a mass in the left paraspinal region somewhat behind the aorta. Case was discussed with initially orthopedic surgery, General surgery who both felt patient would benefit from follow-up probably from thoracic surgery for possible biopsy evaluation as well as med/ Oncology follow-up. Was felt that this would be appropriate as an outpatient. Discussed with patient the location of the mass is not consistent with his pain so may be a separate incidental finding. As Primary Care was contacted to help facilitate follow-up.Patient was given prescription for Protonix and Carafate as well as short course of narcotic pain medication. Return precautions were discussed with the patient, Including GI precautions as well as neurologic precautions. Discharge Plan Departure Patient Disposition: Home Clinical Impression: Abdominal pain, Mass of left paraspinous region Instructions: DI for Abdominal Pain-Adult Activity Restrictions/Additional Instructions: Follow up with your physician if you are not having any improvement. I spoke with Dr. Choudhury today and they will contact your physician to help facilitate follow up. Your imaging today notes a mass at the T6 paraspinal region. It is unclear if this is related to your pain as it is more on the left side this could be a schwannoma or ganglioma and should be followed up. Talk with your physician about getting a referral for biopsy and additional workup. You may take Protonix daily. You may also find Carafate helpful, you can take this before meals or just before bed. You may take pain medication as prescribed. This medication can make you sleepy do not drive, perform hazardous activities or make any major decisions while taking it. This medication will make you constipated please take a stool softener once to twice daily until stools are soft and regular. Prescription sent to [facility] Please return for fevers, lightheadedness or passing out, rapidly worsening pain, persistent vomiting, black or bloody stools or other new or worsening symptoms. Prescriptions: No Action trazodone 50 mg tablet 50 mg PO BEDTIME PRN (Reason: insomnia) Qty: 30 RF: 0 Complete Multivitamin Tablet 1 tab PO DAILY RF: 0 omega-3 fatty acids [Fish Oil Concentrate] 1,000 mg capsule 1,000 mg PO DAILY RF: 0 dicyclomine 10 mg capsule 10 mg PO TID PRN (Reason: abdominal cramp) Qty: 21 RF: 0 dicyclomine 10 mg capsule 10 mg PO TID PRN (Reason: abdominal pain) Qty: 20 RF: 0 Referrals: Batool Payne DO [Primary Care Provider] -
--- NOTE | 2020-11-19 05:50 | DI.US.S_ITS ---
PROCEDURE: US ABDOMEN LIMITED INDICATIONS: POST PRANDIAL RUQ PAIN TECHNIQUE: Real-time focused scanning was performed of the abdomen, with image documentation. COMPARISON: None. FINDINGS: Liver has a normal size. No liver masses. Normal echotexture. Gallbladder is unremarkable. No gallstones or gallbladder wall thickening. No dilated ducts. Common bile duct measures 2.6 mm. Pancreas not visualized secondary to gas. IMPRESSION: Unremarkable right upper quadrant ultrasound. No evidence of gallstone disease. Comment: Final report is concordant with preliminary interpretation provided by [facility]. Dictated by: Santo uHang M.D. on 11/19/2020 at 7:30 Approved by: Santo Huang M.D. on 11/19/2020 at 7:31
[2020-11-19] MEDS: SODIUM CHLORIDE 0.9% 1,000 ML 1000 ML IV ×2 (06:00→09:29)
[2020-11-19] MEDS: PANTOPRAZOLE 40 MG VIAL IV (06:00)
[2020-11-19 06:07] LABS: Add Manual Diff / Slide Review NO; Basophils Absolute Auto 100 /uL (0-100); Basophils Percent Auto 0.5 % (0-2); Eosinophils Absolute Auto 200 /uL (0-450); Eosinophils Percent Auto 1.6 % (2-4); Hematocrit 44.7 % (41-53); Lymphocytes Absolute Auto 4400 /uL (1100-4500); Lymphocytes Percent Auto 39.7 % (25-40); Mean Corpuscular HGB Conc 33.5 % (30-36); Mean Corpuscular Hemoglobin 28.6 PG (26-34); Mean Corpuscular Volume 85.5 fL (80-100); Monocytes Absolute Auto 1300 /uL (0-900); Monocytes Percent Auto 11.7 % (3-14); Neutrophils Absolute Auto 5100 /uL (1500-7000); Neutrophils Percent Auto 46.5 % (50-75); Platelet Count 283 X10^3/uL (150-400); Red Blood Cell Count 5.23 X10^6/uL (4.5-5.9); Red Cell Distribution Width 12.8 % (11.6-14.8)
[2020-11-19] MEDS: ONDANSETRON 4 MG/2 ML INJ IV (06:08)
[2020-11-19 06:11] LABS: Alanine Aminotransferase 21 IU/L (<50); Albumin 4.7 g/dL (3.5-5.0); Albumin Globulin Ratio 1.5 (1.0-2.8); Alkaline Phosphatase 56 U/L (38-126); Aspartate Aminotransferase 28 IU/L (17-59); BUN Creatinine Ratio 14.6 (6-22); Bilirubin Total 0.5 mg/dL (0.2-1.3); Blood Urea Nitrogen 13 mg/dL (9-20); Calcium 9.8 mg/dL (8.4-10.2); Carbon Dioxide 28 mmol/L (22-32); Chloride 103 mmol/L (98-107); Estimated Glomerular Filt Rate > 60.0 mL/min (>60); Globulin 3.2 g/dL (1.7-4.1); Glucose 107 mg/dL (70-100); HEMOLYSIS < 15 (0-50); Lipase 33 U/L (23-300); Potassium 3.2 mmol/L (3.4-5.1); Sodium 141 mmol/L (137-145); Total Protein 7.9 g/dL (6.3-8.2)
--- NOTE | 2020-11-19 06:34 | DI.CT.S_ITS ---
PROCEDURE: CT ABDOMEN PELVIS W CON INDICATIONS: severe right sideda abdominal pain TECHNIQUE: After the administration of intravenous contrast, axial sections acquired from the lung bases to the pubic symphysis. Coronal and sagittal reformats were performed. For radiation dose reduction, the following was used: automated exposure control, adjustment of mA and/or kV according to patient size. COMPARISON: None. FINDINGS: Image quality: Excellent. Lung bases: There is a paraspinous mass hugging the left paraspinal region lateral to the highest vertebral body imaged, T6. It is incompletely image, likely extending more superiorly. It extends down to the level of T7-T8. It may represent a schwannoma or paraganglioma. Lung bases are clear. Heart: No significant findings. ABDOMEN: Liver: Unremarkable. Gallbladder: Unremarkable. Biliary ducts: Unremarkable. Pancreas: Unremarkable. Spleen: Unremarkable. Adrenal Glands: Unremarkable. Kidneys and Ureters: Unremarkable. Stomach and Bowel: Stomach, small bowel loops, and colon are unremarkable. Peritoneum: No abnormal intraperitoneal fluid. No free air. Ventral Wall: No hernias. Abdominal Nodes: No retroperitoneal or mesenteric adenopathy by size criteria. Vessels: Aorta and inferior vena cava are normal in size. PELVIS: Pelvic Organs: Unremarkable. Bladder: Unremarkable. Pelvic Nodes: No enlarged lymph nodes. Miscellaneous: No hernias are seen. Bones: Unremarkable. IMPRESSION: 1. There is a paraspinous mass noted along the left paraspinous region, incompletely imaged, extending from T6 through T7-T8, but extending higher than the images provided. It may potentially represent a schwannoma or paraganglioma. 2. No other significant findings. No evidence of acute abdominal process. Comment: Recommend CT chest with contrast. Patient may potentially need a thoracic spine MRI with without contrast, based on CT chest findings. Comment: Findings were discussed with Dr. Bernstein at the time of study dictation on 11/19/2020 at 0818 hours [place] daylight time. Dictated by: Santo Huang M.D. on 11/19/2020 at 8:11 Approved by: Santo Huang M.D. on 11/19/2020 at 8:35
[2020-11-19] MEDS: HYDROMORPHONE 0.5 MG INJ IV ×2 (06:40→09:07)
[2020-11-19 07:56] LABS: COVID19 - ADMIT (NP swab/PCR) Negative (Negative)
[2020-11-19] MEDS: POTASSIUM CHLORIDE 20 MEQ TAB 40 MEQ PO (09:15)
--- NOTE | 2020-11-19 09:22 | DI.CT.S_ITS ---
PROCEDURE: CT CHEST W CON INDICATIONS: severe pain TECHNIQUE: After the administration of intravenous contrast, 5 mm thick sections acquired from the pulmonary apices to the posterior costophrenic angles. 1 mm axial lung, 5 mm thick coronal and sagittal reformats and 7 mm axial MIP were acquired. For radiation dose reduction, the following was used: automated exposure control, adjustment of mA and/or kV according to patient size. COMPARISON: None. FINDINGS: Image quality: Excellent. Lungs and pleura: No acute air space opacities. No pleural effusions or pneumothorax. Central and peripheral airways are patent and normal in caliber. Mediastinum: Heart size is normal. No pericardial effusion. No mediastinal or hilar adenopathy by size criteria. Thoracic aorta and central pulmonary arteries are normal in size. Esophagus is normal in caliber. No hiatal hernia. Bones and chest wall: There is a left paraspinous mass centered T6 which extends from T4-T5 through T7-T8. It measures 5.7 x 1.7 x 3.0 cm. Reference image 40/5 and image 27/2. It may represent schwannoma or paraganglioma. There is no associated foraminal widening. No suspicious bony lesions. No vertebral body compression fractures. No axillary or supraclavicular adenopathy by size criteria. Thyroid gland is unremarkable . Abdomen: Visualized upper abdominal solid organs appear normal. Upper abdominal bowel loops are normal in caliber. IMPRESSION: 1. Left paraspinous mass measuring 5.7 x 1.7 x 3.0 cm centered at the level of T6. Differential includes schwannoma and paraganglioma. 2. Otherwise unremarkable chest CT with contrast. Consider thoracic spine MRI with without contrast, potentially on a nonemergent basis. Dictated by: Santo Huang M.D. on 11/19/2020 at 9:08 Approved by: Santo Huang M.D. on 11/19/2020 at 9:16
== END 2020-11-19 11:57 | disposition home or self-care (01) ==
PROVIDERS: Emergency Medicine; Emergency Provider Emergency Medicine; PCP Family Medicine
DX: R22.2 Localized swelling, mass and lump, trunk (principal); R10.11 Right upper quadrant pain; R00.0 Tachycardia, unspecified; Z20.822 Contact with and (suspected) exposure to COVID-19
CPT/HCPCS: 36415; 71260; 74177; 76705; 80053; 81003; 83690; 85025; 87635; 96361; 96374; 96375; 96376; 99285; C9803; C9113; J1170; J2405; Q9967

== ENCOUNTER 2020-11-20 02:40 | Emergency (ER) | payer OTHER, SELFPAY ==
--- NOTE | 2020-11-20 06:31 | ED.GENADULT ---
HPI - General Adult General Stated complaint: abdominal pain x 2 days Time Seen by Provider: 11/20/20 06:31 History of Present Illness HPI narrative: Patient is a 30-year-old male who is here for evaluation of abdominal discomfort. He was seen here in the emergency department a couple days ago where he had CT scans performed. There was an incidental finding found around his paraspinal region that was felt to be unrelated to his abdominal discomfort. He returns to the emergency department today for continued symptoms. He has been doing the medications that were prescribed to him that his last visit but he does not feel that these symptoms are helping. He did state that he had a large bowel movement at the onset of the symptoms since his last visit here which potentially helped the pain somewhat. Related Data Home Medications Medication Instructions Recorded Confirmed multivitamin,[id number]-[id number] 1 tab PO DAILY 07/14/19 11/09/20 (Complete Multivitamin) omega-3 fatty acids 1,000 mg 1,000 mg PO DAILY 07/14/19 11/09/20 capsule (Fish Oil Concentrate) Previous Rx's Medication Instructions Recorded pantoprazole 40 mg tablet,delayed 40 mg PO DAILY #20 tab 11/19/20 release (Protonix) sucralfate 1 gram tablet (Carafate) 1 g PO QACHS #20 tab 11/19/20 tramadol 50 mg tablet (Ultram) 50 mg PO Q6H PRN #10 tab 11/19/20 dicyclomine 10 mg capsule 10 mg PO TID PRN #21 cap 11/20/20 Allergies Allergy/AdvReac Type Severity Reaction Status Date / Time acetaminophen [ACETAMINOPHEN] Allergy Intermediate Verified 11/19/20 05:58 Review of Systems Constitutional Constitutional: Denies fever(s) Cardiovascular Cardiovascular: Denies chest pain Respiratory Comments: No shortness of breath Gastrointestinal Gastrointestinal: Reports abdominal pain and Reports other (Large bowel movement) Musculoskeletal Musculoskeletal: Reports system reviewed and no additional complaints, except as documented Integumentary/Breasts Skin/Breast: Reports system reviewed and no additional complaints, except as documented Neurologic Neurologic: Reports system reviewed and no additional complaints, except as documented Hematologic/Lymphatic On Anticoagulants: No Patient History Medical History Conjunctivitis GI bleed due to NSAIDs Surgical History History of third molar tooth extraction Family History Grandfather Age: 76 Depression Social History Smoking Status: Never smoker Smoking Status: Never smoker alcohol intake frequency: holidays/special occasions only Substance Use Type: marijuana and other Exam Initial Vital Signs Initial Vital Signs: Vital Signs Pulse Rate 88 11/20/20 06:59 Respiratory Rate 18 11/20/20 06:59 Blood Pressure 128/68 11/20/20 06:59 Pulse Oximetry 98 11/20/20 06:59 Const General: cooperative and healthy appearing HENMT Head: normal to inspection and normocephalic Resp Effort & Inspection: normal respiratory effort Cardio Rate: regular rate GI Palpation: soft and tender Skin General: no rashes or lesions noted Neuro General: patient alert, patient awake and patient oriented x3 Extrem General: normal to inspection Course Orders Ordered: Discontinued Medications Ondansetron HCl (Ondansetron 4 Mg/2 Ml Inj) 4 mg IV NOW ONE Stop: 11/20/20 06:35 Last Admin: 11/20/20 06:39 Dose: 4 mg Documented by: RYAN Medical Decision Making Medical Records Medical records reviewed: Yes I reviewed the patient's medical records. Lab Data Lab results reviewed: Yes I reviewed the patient's lab results. Result diagrams: 11/20/20 05:19 11/20/20 05:19 Labs: Lab Results 11/20/20 11/20/20 Range/Units 05:19 05:19 WBC 7.7 (4.5-11.0) X10^3/uL RBC 5.19 (4.5-5.9) X10^6/uL Hgb 15.1 (13.5-17.5) g/dL Hct 44.2 (41-53) % MCV 85.2 (80-100) fL MCH 29.1 (26-34) PG MCHC 34.1 (30-36) % RDW 12.7 (11.6-14.8) % Plt Count 251 (150-400) X10^3/uL Neut % (Auto) 55.0 (50-75) % Lymph % (Auto) 32.0 (25-40) % [place] % (Auto) 11.4 (3-14) % Eos % (Auto) 1.1 L (2-4) % Baso % (Auto) 0.5 (0-2) % Neut # (Auto) 4200 (8115-0189) /uL Lymph # (Auto) 2500 (3732-7739) /uL [place] # (Auto) 900 (0-900) /uL Eos # (Auto) 100 (0-450) /uL Baso # (Auto) 0 (0-100) /uL Sodium 140 (137-145) mmol/L Potassium 3.6 (3.4-5.1) mmol/L Chloride 106 (98-107) mmol/L Carbon Dioxide 26 (22-32) mmol/L BUN 8 L (9-20) mg/dL Creatinine 0.74 (0.66-1.25) mg/dL Estimated GFR > 60.0 (>60) mL/min BUN/Creatinine Ratio 10.8 (6-22) Glucose 100 (70-100) mg/dL Calcium 9.8 (8.4-10.2) mg/dL Total Bilirubin 0.6 (0.2-1.3) mg/dL AST 26 (17-59) IU/L ALT 19 (<50) IU/L Alkaline Phosphatase 51 (38-126) U/L Total Protein 7.4 (6.3-8.2) g/dL Albumin 4.4 (3.5-5.0) g/dL Globulin 3.0 (1.7-4.1) g/dL Albumin/Globulin Ratio 1.5 (1.0-2.8) Lipase 62 D (23-300) U/L [facility] Narrative Medical decision making narrative: Patient was initially seen during the EMR down time so some of the patient's node may be only in paper form. I did refer review his prior visit. He had an ultrasound and a CT scan of fairly extensive workup in his labs today are unremarkable as well. I feel that we can hold on further workup. He did report that his abdominal discomfort did improve after having a large bowel movement prior to arrival. We can start Bentyl to see if that does not improve some of his symptoms. He was afebrile. He was given return precautions and follow-up instructions. He expressed understanding and agreement. Discharge Plan Departure Patient Disposition: Home Clinical Impression: Abdominal pain Activity Restrictions/Additional Instructions: I do recommend that you continue with the Protonix /pantoprazole and the Carafate /sucralfate that you were given during your last ER visit. We going to add on a medicine called Dasha. [facility] This is an as-needed medication. I do recommend you contact your primary doctor as you may need a referral to see Gastroenterology for further evaluation and treatment. Prescriptions: New dicyclomine 10 mg capsule 10 mg PO TID PRN (Reason: abdominal cramp) Qty: 21 RF: 0 No Action Complete Multivitamin Tablet 1 tab PO DAILY RF: 0 omega-3 fatty acids [Fish Oil Concentrate] 1,000 mg capsule 1,000 mg PO DAILY RF: 0 pantoprazole [Protonix] 40 mg tablet,delayed release (DR/EC) 40 mg PO DAILY Qty: 20 RF: 0 sucralfate [Carafate] 1 gram tablet 1 g PO QACHS Qty: 20 RF: 0 tramadol [Ultram] 50 mg tablet 50 mg PO Q6H PRN (Reason: pain) Qty: 10 RF: 0 Referrals: Batool Payne DO [Primary Care Provider] -
[2020-11-20] MEDS: ONDANSETRON 4 MG/2 ML INJ IV (06:39)
[2020-11-20 06:59] VITALS: BP 128/68; PULSE 88; RESP 18; O2SAT 98
--- NOTE | 2020-11-20 07:00 | PC.NURSE ---
Please see paper charting for all meditech notes/assessments/orders. [facility] was down at 0400.
[2020-11-20 07:10] LABS: Add Manual Diff / Slide Review NO; Basophils Absolute Auto 0 /uL (0-100); Basophils Percent Auto 0.5 % (0-2); Eosinophils Absolute Auto 100 /uL (0-450); Eosinophils Percent Auto 1.1 % (2-4); Hematocrit 44.2 % (41-53); Hemoglobin 15.1 g/dL (13.5-17.5); Lymphocytes Absolute Auto 2500 /uL (1100-4500); Mean Corpuscular HGB Conc 34.1 % (30-36); Mean Corpuscular Hemoglobin 29.1 PG (26-34); Mean Corpuscular Volume 85.2 fL (80-100); Monocytes Absolute Auto 900 /uL (0-900); Monocytes Percent Auto 11.4 % (3-14); Neutrophils Absolute Auto 4200 /uL (1500-7000); Platelet Count 251 X10^3/uL (150-400); Red Blood Cell Count 5.19 X10^6/uL (4.5-5.9); Red Cell Distribution Width 12.7 % (11.6-14.8); White Blood Cell Count 7.7 X10^3/uL (4.5-11.0)
[2020-11-20 07:16] LABS: Alanine Aminotransferase 19 IU/L (<50); Albumin 4.4 g/dL (3.5-5.0); Albumin Globulin Ratio 1.5 (1.0-2.8); Alkaline Phosphatase 51 U/L (38-126); Aspartate Aminotransferase 26 IU/L (17-59); BUN Creatinine Ratio 10.8 (6-22); Bilirubin Total 0.6 mg/dL (0.2-1.3); Blood Urea Nitrogen 8 mg/dL (9-20); Calcium 9.8 mg/dL (8.4-10.2); Carbon Dioxide 26 mmol/L (22-32); Chloride 106 mmol/L (98-107); Estimated Glomerular Filt Rate > 60.0 mL/min (>60); Glucose 100 mg/dL (70-100); HEMOLYSIS < 15 (0-50); Lipase 62 U/L (23-300); Potassium 3.6 mmol/L (3.4-5.1); Sodium 140 mmol/L (137-145); Total Protein 7.4 g/dL (6.3-8.2)
== END 2020-11-20 07:00 | disposition home or self-care (01) ==
PROVIDERS: Emergency Provider Emergency Medicine; PCP Family Medicine
DX: R10.9 Unspecified abdominal pain (principal)
CPT/HCPCS: 80053; 83690; 85025; 96374; 99283; 99284; J2405

== ENCOUNTER 2020-11-24 10:20 | Emergency (ER) | payer OTHER, SELFPAY ==
[2020-11-24 10:37] VITALS: BP 146/98; PULSE 108; RESP 20; TEMP 37.1; O2SAT 100
[2020-11-24 11:00] VITALS: BP 145/81; PULSE 95; RESP 18; O2SAT 99
--- NOTE | 2020-11-24 11:05 | DI.MRI.S_ITS ---
PROCEDURE: MR THORACIC SPINE WO/W CON INDICATIONS: mass paraspinal TECHNIQUE: Noncontrast sagittal T1 spin echo and T2 fast spin echo, sagittal STIR, axial T1 and T2 fast spin echo through the thoracic spine. After the administration of contrast, axial and sagittal T1 spin echo with fat saturation through the thoracic spine. COMPARISON: [facility], CT, CT CHEST W CON, 11/19/2020, 9:53. FINDINGS: Image quality: Excellent. Alignment and curvature: There is normal bony alignment. Marrow: Marrow is of normal overall signal. No acute vertebral body compression fractures. Spinal cord: Visualized spinal cord is of normal signal and size, without abnormal enhancement. Paraspinous soft tissues: 3.1 by 1.9 x 5.9 centimeter left paraspinous mass extending from T5-T7 is stable in size and contour compared to prior CT scan. Lesion demonstrates mild heterogeneous enhancement. No bony remodeling or osseous erosions associated with the left paraspinous mass. Miscellaneous: Central canal and foramina appear widely patent at all scanned levels. IMPRESSION: 3.1 x 1.9 x 5.9 centimeter left paraspinous enhances mass stable compared to prior CT scan. Likely diagnostic etiologies include schwannoma, neurofibroma, ganglioneuroma and pheochromocytoma. Dictated by: Kelle Arora MD, PhD on 11/24/2020 at 13:25 Approved by: Kelle Arora MD, PhD on 11/24/2020 at 13:36
--- NOTE | 2020-11-24 11:16 | ED.ABDPAIN ---
HPI - Abdominal Pain General Chief Complaint: Abdominal Pain Stated Complaint: gall bladder pain increasing Time Seen by Provider: 11/24/20 10:57 Source: patient Mode of arrival: Family Vehicle Limitations: no limitations History of Present Illness HPI narrative: Patient comes To the emergency department with complaint of right upper quadrant abdominal pain. Patient was seen here for similar symptoms. Patient states symptoms never resolved. His only improvement is with an nxgf-neq-[id number] gallbladder liquid that is helpful when he drinks it and most of calm the area down. Patient has any fevers or chills. He describes a sensation of fullness on the right side it keeps him from having much appetite. He has pain on the right side. Patient does not believe that eating food seems to make it significantly worse. He has not had vomiting but has had nausea at times. Patient states he has had bowel movements regularly. He has been trying prune juice which has been helping with bowel movements. He has not had any black or bloody stools. Patient denies any left-sided pain. Patient states that he was seen by primary care and noted that he has been using Kratum. Patient states he was having symptoms before he was taking this. He states he has had these symptoms on and off for a long period of time. Patient has been approved for detox in [place]. Patient was noted to have found a paraspinal mass on his ER visit. Patient also has a history of GI bleed secondary to NSAIDs. Patient was taking tramadol which he states made it worse. He unclear if he has been taking the pantoprazole or sucralfate. Related Data Home Medications Medication Instructions Recorded Confirmed multivitamin,[id number]-[id number] 1 tab PO DAILY 07/14/19 11/09/20 (Complete Multivitamin) omega-3 fatty acids 1,000 mg 1,000 mg PO DAILY 07/14/19 11/09/20 capsule (Fish Oil Concentrate) Previous Rx's Medication Instructions Recorded dicyclomine 10 mg capsule 10 mg PO TID PRN #21 cap 11/20/20 trazodone 50 mg tablet 50 mg PO BEDTIME PRN #30 tab 11/23/20 dicyclomine 10 mg capsule 10 mg PO TID PRN #20 cap 11/24/20 Allergies Allergy/AdvReac Type Severity Reaction Status Date / Time acetaminophen [ACETAMINOPHEN] AdvReac Intermediate Nausea Verified 11/24/20 10:40 Review of Systems Review of Systems ROS Unobtainable: All systems reviewed & are unremarkable except as noted in HPI and below Patient History Medical History (Updated 11/24/20 @ 14:21 by Cherie Bernstein DO) Conjunctivitis GI bleed due to NSAIDs Surgical History History of third molar tooth extraction Family History Grandfather Age: 76 Depression Social History Smoking Status: Former smoker Smoking Status: Former smoker tobacco type: cigarettes alcohol intake frequency: holidays/special occasions only Substance Use Type: marijuana and other Exam Narrative Exam Narrative: GENERAL: Alert and oriented x three, well-nourished male in mild distress HEENT: Head normocephalic, atraumatic, EOMI, pupils reactive, face symmetric, moist mucous membranes NECK: Supple, full range of motion CARDIOVASCULAR: Regular rate and rhythm without murmurs, rubs or gallops. RESPIRATORY: Breath sounds equal bilaterally, no wheezes rales or rhonchi. ABDOMEN: Soft, positive for right upper quadrant tenderness. Normoactive bowel sounds all 4 quadrants. No guarding or rebound, rigidity, no mass : No CVA tenderness BACK: No cervical, thoracic or lumbar vertebral point tenderness. Patient has normal range of motion. Patient's gait is normal. EXTREMITIES: Normal range of motion, no clubbing or edema. Neurovascularly intact NEUROLOGICAL: Cranial nerves II through XII grossly intact. Moving all extremities SKIN: Warm, dry, no petechiae, no rashes or lesions. Initial Vital Signs Initial Vital Signs: Vital Signs Temperature 98.7 F 11/24/20 10:37 Pulse Rate 108 H 11/24/20 10:37 Respiratory Rate 20 11/24/20 10:37 Blood Pressure 146/98 H 11/24/20 10:37 Pulse Oximetry 100 11/24/20 10:37 Course Orders Ordered: Discontinued Medications Sodium Chloride (Normal Saline 0.9%) 1,000 mls @ 1,000 mls/hr IV BOLUS ONE Stop: 11/24/20 12:14 Last Infusion: 11/24/20 13:11 Dose: 0 mls/hr Documented by: Admin: 11/24/20 11:56 Dose: 1,000 mls/hr Documented by: ANTHONY Ketorolac Tromethamine (Ketorolac 30 Mg/Ml Vial) 30 mg IV NOW ONE Stop: 11/24/20 11:16 Last Admin: 11/24/20 11:28 Dose: 30 mg Documented by: ANTHONY Lorazepam (Lorazepam 2 Mg/Ml Inj) 0.5 mg IV NOW ONE Stop: 11/24/20 11:53 Last Admin: 11/24/20 11:56 Dose: 0.5 mg Documented by: ANTHONY Ondansetron HCl (Ondansetron 4 Mg/2 Ml Inj) 4 mg IV NOW ONE Stop: 11/24/20 11:16 Last Admin: 11/24/20 11:27 Dose: 4 mg Documented by: ANTHONY Vital Signs Vital signs: Vital Signs - 8 hr 11/24/20 13:43 11/24/20 14:00 Pulse Rate 96 H 81 Blood Pressure 114/57 L Pulse Oximetry 97 96 MDM - Abdominal Pain Lab Data Result diagrams: 11/24/20 11:16 11/24/20 11:16 Labs: Lab Results 11/24/20 11/24/20 Range/Units 11:16 11:16 WBC 7.5 (4.5-11.0) X10^3/uL RBC 5.43 (4.5-5.9) X10^6/uL Hgb 15.8 (13.5-17.5) g/dL Hct 46.5 (41-53) % MCV 85.6 (80-100) fL MCH 29.1 (26-34) PG MCHC 34.0 (30-36) % RDW 12.7 (11.6-14.8) % Plt Count 304 (150-400) X10^3/uL Neut % (Auto) 72.1 (50-75) % Lymph % (Auto) 18.1 L (25-40) % [place] % (Auto) 9.0 (3-14) % Eos % (Auto) 0.4 L (2-4) % Baso % (Auto) 0.4 (0-2) % Neut # (Auto) 5400 (5183-3767) /uL Lymph # (Auto) 1400 (1758-8848) /uL [place] # (Auto) 700 (0-900) /uL Eos # (Auto) 0 (0-450) /uL Baso # (Auto) 0 (0-100) /uL Sodium 140 (137-145) mmol/L Potassium 3.7 (3.4-5.1) mmol/L Chloride 102 (98-107) mmol/L Carbon Dioxide 29 (22-32) mmol/L BUN 9 (9-20) mg/dL Creatinine 0.83 (0.66-1.25) mg/dL Estimated GFR > 60.0 (>60) mL/min BUN/Creatinine Ratio 10.8 (6-22) Glucose 104 H (70-100) mg/dL Calcium 10.0 (8.4-10.2) mg/dL Total Bilirubin 0.7 (0.2-1.3) mg/dL AST 25 (17-59) IU/L ALT 21 (<50) IU/L Alkaline Phosphatase 51 (38-126) U/L Total Protein 7.8 (6.3-8.2) g/dL Albumin 4.7 (3.5-5.0) g/dL Globulin 3.1 (1.7-4.1) g/dL Albumin/Globulin Ratio 1.5 (1.0-2.8) Lipase 70 (23-300) U/L Point of care testing: Urine Dip Bedside Urine Glucose Negative Bedside Urine Bilirubin - Negative Bedside Urine Ketone - Negative Urine Specific [place] 1.010 Bedside Urine Occult Blood - Negative Bedside Urine pH 6.5 Bedside Urine Protein - Negative Bedside Urine Urobilinogen - Negative Bedside Urine Nitrite - Negative Bedside Urine Leukocytes - Negative Esterase Imaging Data US - abdomen: Radiologist's Impression: [address] [id number] ReportSigned Patient: Jim Skaggs RMR#: [id number]: 1990Acct:[id number]/Sex: te of Service: 11/24/20Loc: EDAccession Number: [id number] Procedure: US abdomen limited Ordering Provider: Cherie Bernstein D.O. PROCEDURE: US ABDOMEN LIMITED INDICATIONS: ruq pain, recurrent TECHNIQUE: Real-time focused scanning was performed of the abdomen, with image documentation. COMPARISON: None. FINDINGS: Liver is sonographically normal. Gallbladder is sonographically normal. No gallstones. No gallbladder wall thickening. No pericholecystic fluid. No sonographic Zamorano sign. Biliary tree is nondilated. IMPRESSION: No sonographic evidence of cholelithiasis or cholecystitis. If there is continued clinical concern for cholecystitis, a nuclear medicine HIDA scan should be considered for further evaluation. Dictated by: Kelle Arora MD, PhD on 11/24/2020 at 11:53 Approved by: Kelle Arora MD, PhD on 11/24/2020 at 11:54 MRI thoracic : Radiologist's Impression: [address] [id number] Resonance ReportSigned Patient: Jim Skaggs RMR#: [id number]: 1990Acct:[id number]/Sex: te of Service: 11/24/20Loc: EDAccession Number: [id number] Procedure: MR thoracic spine wo/w con Ordering Provider: Cherie Bernstein D.O. PROCEDURE: MR THORACIC SPINE WO/W CON INDICATIONS: mass paraspinal TECHNIQUE: Noncontrast sagittal T1 spin echo and T2 fast spin echo, sagittal STIR, axial T1 and T2 fast spin echo through the thoracic spine. After the administration of contrast, axial and sagittal T1 spin echo with fat saturation through the thoracic spine. COMPARISON: [facility], CT, CT CHEST W CON, 11/19/2020, 9:53. FINDINGS: Image quality: Excellent. Alignment and curvature: There is normal bony alignment. Marrow: Marrow is of normal overall signal. No acute vertebral body compression fractures. Spinal cord: Visualized spinal cord is of normal signal and size, without abnormal enhancement. Paraspinous soft tissues: 3.1 by 1.9 x 5.9 centimeter left paraspinous mass extending from T5-T7 is stable in size and contour compared to prior CT scan. Lesion demonstrates mild heterogeneous enhancement. No bony remodeling or osseous erosions associated with the left paraspinous mass. Miscellaneous: Central canal and foramina appear widely patent at all scanned levels. IMPRESSION: 3.1 x 1.9 x 5.9 centimeter left paraspinous enhances mass stable compared to prior CT scan. Likely diagnostic etiologies include schwannoma, neurofibroma, ganglioneuroma and pheochromocytoma. Dictated by: Kelle Arora MD, PhD on 11/24/2020 at 13:25 Approved by: Kelle Arora MD, PhD on 11/24/2020 at 13:36 ECG Data Interpretation: Sinus rhythm, rate 89 IL 180 QRS of 96 and QTC 423. No acute ST elevation depression. MDM Narrative Medical decision making narrative: Complaint of abdominal pain that has been persistent. Patient was seen here several days ago. He was noted to have a paraspinal mass but this seems unlikely to be the source of his pain. Patient's labs are once again reassuring, abdominal ultrasound was obtained again. Patient has afebrile. Patient saw his primary care physician today and was noted that he has been taking kratom and may be in withdrawl. Patient was hypertensive slightly tachycardic upon arrival and improved with fluids. MRI for his thoracic spine was ordered, this seemed unlikely source for his abdominal pain but is possible is in the thoracic region although on the left side There are potential barriers from to he be able to obtain this and patient was willing and was ordered. Mass appears to be stable. Does not appear to require emergent treatment at this moment. Vitals are appropriate. Differential was reviewed and patient is already in process of being set up for appropriate outpatient care. Primary care has also gone through the process of helping patient with setting up detox and he has a high disc and ordered as outpatient. Discharge Plan Departure Patient Disposition: Home Clinical Impression: Abdominal pain, Mass of left paraspinous region Instructions: DI for Abdominal Pain-Adult Activity Restrictions/Additional Instructions: Follow up with your physician regarding your MRI results. Your labs and imaging of abdomen today are reassuring. Some of your symptoms may be related to Kratom usage and withdrawal abdominal pain is a known symptom although I would fully endorse the idea of you having a HIDA scan to more fully evaluate your gallbladder. My understanding is your primary care physician has ordered this for you. Prescription for medication for pain has been sent you may try this medication to see if it is helpful with your symptoms Please return for fevers, persistent vomiting, passing out, new chest pain shortness of breath, black or bloody stools, intractable pain or other new or concerning symptoms. Prescriptions: New dicyclomine 10 mg capsule 10 mg PO TID PRN (Reason: abdominal pain) Qty: 20 RF: 0 No Action trazodone 50 mg tablet 50 mg PO BEDTIME PRN (Reason: insomnia) Qty: 30 RF: 0 Complete Multivitamin Tablet 1 tab PO DAILY RF: 0 omega-3 fatty acids [Fish Oil Concentrate] 1,000 mg capsule 1,000 mg PO DAILY RF: 0 dicyclomine 10 mg capsule 10 mg PO TID PRN (Reason: abdominal cramp) Qty: 21 RF: 0 Referrals: Batool Payne DO [Primary Care Provider] -
[2020-11-24 11:23] LABS: Add Manual Diff / Slide Review NO; Basophils Absolute Auto 0 /uL (0-100); Basophils Percent Auto 0.4 % (0-2); Eosinophils Absolute Auto 0 /uL (0-450); Eosinophils Percent Auto 0.4 % (2-4); Hematocrit 46.5 % (41-53); Hemoglobin 15.8 g/dL (13.5-17.5); Lymphocytes Absolute Auto 1400 /uL (1100-4500); Lymphocytes Percent Auto 18.1 % (25-40); Mean Corpuscular Hemoglobin 29.1 PG (26-34); Mean Corpuscular Volume 85.6 fL (80-100); Monocytes Absolute Auto 700 /uL (0-900); Neutrophils Absolute Auto 5400 /uL (1500-7000); Neutrophils Percent Auto 72.1 % (50-75); Platelet Count 304 X10^3/uL (150-400); Red Blood Cell Count 5.43 X10^6/uL (4.5-5.9); Red Cell Distribution Width 12.7 % (11.6-14.8); White Blood Cell Count 7.5 X10^3/uL (4.5-11.0)
[2020-11-24] MEDS: ONDANSETRON 4 MG/2 ML INJ IV (11:27)
[2020-11-24] MEDS: KETOROLAC 30 MG/ML VIAL IV (11:28)
[2020-11-24 11:30] VITALS: BP 126/82; PULSE 94; RESP 95; O2SAT 99
[2020-11-24 11:37] LABS: Alanine Aminotransferase 21 IU/L (<50); Albumin 4.7 g/dL (3.5-5.0); Albumin Globulin Ratio 1.5 (1.0-2.8); Alkaline Phosphatase 51 U/L (38-126); Aspartate Aminotransferase 25 IU/L (17-59); BUN Creatinine Ratio 10.8 (6-22); Bilirubin Total 0.7 mg/dL (0.2-1.3); Blood Urea Nitrogen 9 mg/dL (9-20); Carbon Dioxide 29 mmol/L (22-32); Chloride 102 mmol/L (98-107); Estimated Glomerular Filt Rate > 60.0 mL/min (>60); Globulin 3.1 g/dL (1.7-4.1); Glucose 104 mg/dL (70-100); HEMOLYSIS < 15 (0-50); Lipase 70 U/L (23-300); Potassium 3.7 mmol/L (3.4-5.1); Sodium 140 mmol/L (137-145); Total Protein 7.8 g/dL (6.3-8.2)
[2020-11-24] MEDS: LORazepam 2 MG/ML INJ 0.5 MG IV (11:56)
[2020-11-24] MEDS: SODIUM CHLORIDE 0.9% 1,000 ML 1000 ML IV (11:56)
[2020-11-24 12:03] VITALS: BP 117/72; PULSE 89; RESP 18; O2SAT 97
[2020-11-24 13:43] VITALS: PULSE 96; O2SAT 97
[2020-11-24 14:00] VITALS: BP 114/57; PULSE 81; O2SAT 96
== END 2020-11-24 14:39 | disposition home or self-care (01) ==
PROVIDERS: Emergency Provider Emergency Medicine; PCP Family Medicine
DX: R10.11 Right upper quadrant pain (principal); R22.2 Localized swelling, mass and lump, trunk; R03.0 Elevated blood-pressure reading, without diagnosis of hypertension; R11.0 Nausea
CPT/HCPCS: 36415; 72157; 76705; 80053; 81003; 83690; 85025; 93005; 96361; 96374; 96375; 99284; A9579; J1885; J2060; J2405